=== PATIENT | male | born 1990 | race African-American/Black ===

== ENCOUNTER 2021-05-18 14:02 | Inpatient (IN) | payer SELFPAY ==
[~2021-05-18] VITALS: Ht 180.3 cm; Wt 57.2 kg
[2021-05-18] MEDS ORDERED: METHYLPREDNISOLONE SOD SUCC 125 MG/2 ML VIAL IV STA (16:53)
[2021-05-18] MEDS ORDERED: IPRATROPIUM BROMIDE (0.02%) 0.5MG/2.5ML NEB HHN STA (16:53)
[2021-05-18] MEDS ORDERED: MAGNESIUM 2 G PREMIX 50 ML IV ONE (17:00)
[2021-05-18] MEDS ORDERED: SODIUM CHLORIDE 0.9% 1,000 ML IV ONE (17:00)
[2021-05-18] MEDS: ALBUTEROL (0.083%) 2.5MG/3ML NEB HHN SCH ×3 (17:24→20:11)
[2021-05-18 17:53] LABS: CHLORIDE 105 mEq/L (98-107); INR 1.2; PROTHROMBIN TIME 12.4 sec (9.6-11.0)
[2021-05-18 17:57] LABS: ETHANOL BLOOD < 10 mg/dL
[2021-05-18 18:00] LABS: BASOPHILS % 0.5 % (0.0-2.0); EOSINOPHILS % 3.2 % (0.0-5.0); HEMATOCRIT. 21.7 % (42.0-52.0); HEMOGLOBIN. 7.5 g/dL (14.0-18.0); LYMPHOCYTES % 12.9 % (20.0-50.0); MEAN CORPUSCULAR HEMOGLOBIN 29.4 pg (28.0-32.0); MEAN CORPUSCULAR VOLUME 85.5 fL (80.0-94.0); MEAN PLATELET VOLUME 6.3 fl (7.4-10.4); MONOCYTES % 6.4 % (2.0-8.0); PLATELET 311 x1000/uL (130-400); RED BLOOD CELL COUNT 2.53 mill/uL (4.7-6.1)
[2021-05-18] MEDS ORDERED: FUROSEMIDE 40MG/4ML VIAL IVP ONE (18:00)
[2021-05-18] MEDS ORDERED: LORAZEPAM 1MG TABLET PO ONE (18:15)
[2021-05-18] MEDS ORDERED: CEFTRIAXONE 1 G PREMIX 50 ML IV ONE (18:30)
[2021-05-18] MEDS ORDERED: AZITHROMYCIN 500 MG in DEXT 5% WATER 250 ML IV ONE (18:30)
[2021-05-18] MEDS ORDERED: CLONIDINE 0.1MG TABLET PO PRN (21:45)
[2021-05-18] MEDS ORDERED: HYDROCODONE/ACETAMINOPHEN 5/325MG TABLET PO PRN (21:45)
[2021-05-18] MEDS ORDERED: MAGNESIUM/ALUMINUM HYDROXIDE/SIMETHICONE 30ML UDC PO PRN (21:45)
[2021-05-18] MEDS ORDERED: DIPHENHYDRAMINE 50MG/ML VIAL IV PRN (21:45)
[2021-05-18] MEDS ORDERED: GUAIFENESIN 200MG/10ML SUGAR FREE UDC PO PRN (21:45)
[2021-05-18] MEDS ORDERED: ONDANSETRON HCL 4MG/2ML INJ IV PRN (21:45)
[2021-05-18] MEDS ORDERED: DOCUSATE SODIUM 100MG CAPSULE PO PRN (21:45)
[2021-05-18] MEDS ORDERED: HYDRALAZINE 20MG/ML VIAL IV PRN (21:45)
[2021-05-18] MEDS: SODIUM CHLORIDE 0.9% INJ 3ML FLUSH IVF SCH (22:00)
[2021-05-18 22:55] VITALS: BP 122/88
[2021-05-18] MEDS ORDERED: NALOXONE HCL 0.4 MG/ML 1ML VIAL IV PRN (23:00)
[2021-05-19] VITALS: BP 122/88
[2021-05-19] MEDS: IPRATROPIUM/ALBUTEROL 0.5-3(2.5)MG/3ML NEB HHN PRN ×3 (00:33→06:33)
[2021-05-19] MEDS: LORAZEPAM 2MG/ML CPJ IV PRN ×2 (00:52→05:52)
[2021-05-19] MEDS: MORPHINE SULFATE 2 MG/ML CPJ (NOT FOR IM USE) IV PRN ×2 (01:18→08:02)
[2021-05-19 04:00] VITALS: BP 126/103
[2021-05-19] MEDS: SODIUM CHLORIDE 0.9% INJ 3ML FLUSH IVF SCH (05:55)
[2021-05-19 08:14] LABS: CHLORIDE 103 mEq/L (98-107)
[2021-05-19 08:15] LABS: HEMATOCRIT. 22.5 % (42.0-52.0); HEMOGLOBIN. 7.6 g/dL (14.0-18.0); MEAN CORPUSCULAR HEMOGLOBIN 29.9 pg (28.0-32.0); MEAN PLATELET VOLUME 6.8 fl (7.4-10.4); PLATELET 326 x1000/uL (130-400); RED BLOOD CELL COUNT 2.55 mill/uL (4.7-6.1); RED CELL DISTRIBUTION WIDTH 15.3 % (11.6-14.6)
[2021-05-19 11:01] LABS: PLATELET ESTIMATE NORMAL
== END 2021-05-19 09:35 | disposition left against medical advice (07) | DRG 133 ==
LOC: ER 14:02 → 6WST 19:22 → EDBEDREQ 19:29 → ENRESERV 21:26
PROVIDERS: ADMIT Internal Medicine; ATTEND Internal Medicine
DX: J96.00 Acute respiratory failure, unspecified whether with hypoxia or hypercapnia (principal); J18.9 Pneumonia, unspecified organism; E46 Unspecified protein-calorie malnutrition; I50.9 Heart failure, unspecified; N18.6 End stage renal disease; J44.0 Chronic obstructive pulmonary disease with (acute) lower respiratory infection; D64.9 Anemia, unspecified; B85.2 Pediculosis, unspecified; Z53.29 Procedure and treatment not carried out because of patient's decision for other reasons; R74.01 Elevation of levels of liver transaminase levels; F29 Unspecified psychosis not due to a substance or known physiological condition; Z99.2 Dependence on renal dialysis; Z68.1 Body mass index [BMI] 19.9 or less, adult
CPT/HCPCS: 71045; 80053; 80320; 83605; 83880; 84145; 84484; 85025; 93005; J0456; J0696; J1940; J2930; J3475; J7030; J7060; G0480